=== PATIENT | female | born 2005 | race Two or more races ===

== ENCOUNTER 2023-04-25 08:49 | Outpatient (CLI) | payer OTHER, SELFPAY | END 2023-04-25 08:50 | disposition home or self-care (01) | LOC: NFLDREF 08:51 | PROVIDERS: PCP Family Medicine; Visit Provider Family Medicine | DX: Z00.00 Encounter for general adult medical examination without abnormal findings (principal); E55.9 Vitamin D deficiency, unspecified; E83.51 Hypocalcemia; Z86.39 Personal history of other endocrine, nutritional and metabolic disease; Z13.6 Encounter for screening for cardiovascular disorders | CPT/HCPCS: 80061; 82306; 82947 ==